=== PATIENT | male | born 1990 | race Caucasian/White ===

== ENCOUNTER 2024-09-21 14:16 | Emergency (ER) | payer SELFPAY ==
--- OUTSIDE RECORDS SUMMARY | 2024-09-21 14:19 | XMS_ITS | Continuity of Care Document ---
Author Organization [facility] Address [address] [place] [address] Phone Care Team Providers Care Community Relations Representative Name Role Phone Mikaela Walker Unavailable Unavailable Allergies, Adverse Reactions, Alerts Substance Reaction Status Criticality No Known Allergies Active No Inform ation Medications Medication Instructions Dosage Effective Dates (start - stop) Status Comments levothyroxine 100 mcg tablet take 1 tablet by oral route every day 100 MCG - Active Procedures Procedure Date FREE T4 (FT4) THYROID STIMULATION HORMONE(TSH) 2019 ROUTINE VENIPUNCTURE PREVENTATIVE-NEW: 18-39 GENERAL HEALTH PANEL FREE T4 (FT4) ROUTINE VENIPUNCTURE Advance Directives Directive Yes / No Effective Date File Name Life Support Not Answered N/A N/A Intubation Not Answered N/A N/A Antibiotics Not Answered N/A N/A IV Fluid Support Not Answered N/A N/A Tube Feed Not Answered N/A N/A Other Directive N/A N/A WARNING:The information contained in this section is historical and is provided for information only and does not constitute a legal document or any assurance that the information is still accurate. Please verify the information with the diehl of the legal document before using it for clinical purposes. Encounters Encounter Description Practice Location Reason(s) For Visit Diagnoses Date Provider Providers Copied on Encounter [facility], [address], [place], [place], [id number] , tel: [phone] [place] No Information 1 Kitty Al[address] [place], [place], [id number] , . tel: [phone] [facility], [address], [place], [place], [id number] , tel: [phone] [place] Graves diseaseHypothyroidism following radioiodine therapy 0 Archie [address] [place], [place], [id number] , . tel: [phone] Referring Provider: Lashay Hamilton, [address] [place], [address] . tel:[phone] [facility], [address], [place], [place], [address] , tel: [phone] [place] No Information 0 Kitty [address] [place], [place], [id number] , . tel: [phone] PREVENTATIVE -NEW: 18-39 [facility], [address], [place], [place], [id number] , tel: [phone] [facility] Patient (chief complaint) Routine medical examGraves diseaseS/P radioactive iodine thyroid ablationHypothyroidis m following radioiodine therapy 0 Kitty Al. [address] [place], [place], [id number] , [place]. tel:[phone] Referring Provider: Lashay Hamilton, [address] [place], [address] . tel:[phone] Family History Family Member Type Diagnosis Age At Onset Mother Problem rheumatoid arthritis Mother Problem Irritable bowel syndrome Mother Problem Lupus erythematosus Mother Problem Allergies Mother Problem asthma Mother Problem hypercholesterolemia Mother Problem attention deficit hyperactiv ity disorder Mother Problem osteoarthritis Mother Problem migraine Mother Problem stroke Payers Payer name Insurance type Covered libertarian ID Steffi fowler(s) [employer] [id number] Social History Type Description Quantity Date Captured Comments Alcohol Use Details Unknown Caffeine Use Details Unknown Tobacco Use Status No Information Smoking Status No Information Sex Male Sexual Orientation Straight or heterosexual Gender Identity Male Chief Complaint And Reason For Visit No Information Reason For Referral Reason For Referral No Information History Of Present Illness Encounter Date Complaint History Of Prese nt Illness New Patient Patient presents to establish care as a new patient. Patient's last visit to a primary care provider was approximately 4-5 years ago. Patient lives with a friend of his. Patient has a 6 year old son who lives with his mom in [place]. He gets to see him a couple times a month. He works at [employer] in [place].AcuteNo acute issuesChronicGraves diseasePatient takes levothyroxine. He has increased urination, night sweats, memory loss, constipation, increased appetite, insomnia, anxiety, general fatigue. He has been out of his medication for several months. Patient reports that these symptoms are all consistent with being out of his medication. He was seeing SANDRA Duffy. He did the radioactive iodine and completed treatment. He does not need to go back to the specialist. Specialists/Other Providers - noneAllergies - NKDAMood - anxious, amanda off of levothyroxineDiet - normal - fairly balancedExercise - goes to the gym 3-4 times per week Sexual history - sexually active with no concerns of STIsTobacco/Alcohol/Drugs - former quit one year ago/never/neverScreeningsnone neededImmunizationsInfluenza - UTDTdap - unknown (refuses today) Functional Status Date Functional Assessmen t No Information Instructions Date Instruction Additional Infor mikie We will check thyroi d labs today and contact you with results Related to Hypothyroidism following radioiodine therapy We will check labs t verónica and contact you tomorrow with results Related to S/P radioactive iodine thyroid ablation We will check labs t verónica and contact you tomorrow with results Related to Graves disease Return in one year f or annual physical Related to Routine medical exam Assessments Type Assessment Date No Information Patient Care Teams Name Effective Dates (start - stop) Status Members No Information
--- OUTSIDE RECORDS SUMMARY | 2024-09-21 14:19 | XMS_ITS | Clinical Summary ---
Author Organization [facility] Address [address] [place] [address] Care Team Providers Care Driller Portable Name Role Phone Henrietta Acevedo INSPECTOR RADAR AND ELECTRONICS-SANITARY AIDE Primary Care Provider Source Comments [facility],non-owned Affiliates and Associated Physician Practices is amultiple site organization consisting of ambulatory clinics and hospital sitesin [place], [place], [place] and [place]. This disclosure is being madepursuant to the Care Everywhere program and may not contain all information available regarding this patient. Last updated 18.[facility] Allergies Active Allergy Reactions Criticality Noted Date Comments Gramineae Pollens Other 09/29/2018 Grass/ pollen/ mold etc Medications * Be aware that medications may not be up to date on this document. Alwaysverify current medications with the patient. calcium carbonate (CALTRATE) 600 MG tablet Take 1 tablet by mouth DAILY. 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 Encounters Date Type Department Care Team Description 08/13/2024 2:57 PM CDT - 08/13/2024 8:14 PM CDT Emergency [facility] [address] [place] [address] Alea Nevarez MD Trauma (Primary Dx); Contusion of scalp, initial encounter Discharge Disposition: Home or Self Care 08/13/2024 Travel from Last 3 Months Immunizations Immunization Administration Dates Next Due TDAP (7yrs+) 08/13/2024 Family History Medical History Relation Name Comments Diabetes Maternal Grandfather Hypertension Maternal Grandfather Hypertension Maternal Grandmother Arthritis Mother Diabetes Paternal Grandfather Hypertension Paternal Grandfather Hypertension Paternal Grandmother Thyroid Disease Neg Hx Relation Name Status Comments Maternal Grandfather Maternal Grandmother Mother Paternal Grandfather Paternal Grandmother Social History Tobacco Use Types Packs/Day Years Used Date Smoking Tobacco: Former Cigarettes Q uit: 01/15/2017 Smokeless Tobacco: Never Alcohol Use Standard Drinks/Week Comments Yes 0 (1 standard drink = 0.6 oz pur e alcohol) Sex and Gender Information Value Date Recorded Sex Assigned at Not on file Legal Sex Male 5:17 PM [employer] 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[employer] Gender Identity Not on file Sexual Orientation Not on file Last Filed Vital Signs Vital Sign Reading Time Taken Comments Blood Pressure 138/94 08/13/2024 6:15 PM CDT Pulse 66 08/13/2024 6:15 PM CDT Temperature 36.3 C (97.4 F) 08/13/2024 2:56 PM CDT Respiratory Rate 16 08/13/2024 6:15 PM CDT Oxygen Saturation 98% 08/13/2024 6:15 PM CDT Inhaled Oxygen Concentration - - Weight 65.8 kg (145 lb) 07/11/2019 2:43 PM CDT Height 167.6 cm (5' 6 ) 07/11/2019 2:43 PM CDT Body Mass Index 23.4 07/11/2019 2:43 PM CDT Plan of Treatment Health Maintenance Due Date Last Done Comments HIV SCREENING 11/05/2003 HEPATITIS C SCREENING 10/31/2006 HEPATITIS B VACCINE (1 of 3 - 19+ 3-dose series) 11/05/2007 COVID-19 VACCINE (2023-2 5 season) 2024 DEPRESSION SCREENING 05/03/2024 INFLUENZA VACCINE (Season Ended) 2025 DTAP/TDAP/TD VACCINES (2 - T d or Tdap) 08/13/2034 08/13/2024 ZOSTER VACCINE (1 of 2) 2038 HIB VACCINE Aged Out No longer eligi ble based on patient's age to complete this topic HPV VACCINE Aged Out No longer eligi ble based on patient's age to complete this topic MENINGOCOCCAL (Group B) VACC INE SHARED DECISION-MAKING Aged Out No longer eligibl e based on patient's age to complete this topic MENINGOCOCCAL GROUPS A/C/Y/W VACCINE Aged Out No longer eligible b ased on patient's age to complete this topic PNEUMOCOCCAL VACCINE Aged Out No long er eligible based on patient's age to complete this topic Procedures Procedure Name Priority Date/Time Associated Diagnosis Comments XR SHOULDER RIGHT 2VW OR MORE STAT 08/13/2024 5:[address] CERVICAL SPINE WO CONTRAST STAT 08/13/2024 3:[address] FACIAL BONES WO CONTRAST STAT 08/13/2024 3:[address] HEAD WO CONTRAST STAT 08/13/2024 3 :25 PM CDT Trauma TYPE + SCREEN PANEL STAT 08/13/2024 3 :11 PM CDT PTT H STAT 08/13/2024 3:11 PM CDT PT-INR [facility] STAT 08/13/2024 3:11 PM CDT CBC W AUTO DIFFERENTIAL STAT 08/13/2024 3:11 PM CDT BASIC METABOLIC PANEL (CALCIUM TOTAL) STAT 08/13/2024 3:11 PM CDT ALCOHOL ETHYL BLOOD STAT 08/13/2024 3 :11 PM CDT XR CHEST 1VW PORTABLE STAT 08/13/2024 3:10 PM CDT Trauma XR PELVIS 1 OR 2VW STAT 08/13/2024 3: 10 PM CDT Trauma from Last 3 Months Results * XR Shoulder Right 2Vw or More (08/13/2024 5:14 PM CDT) Anatomical Region Laterality Modality Upper Extremity Digital Radiogra phy 08/13/2024 5:41 PM CDT Impressions 08/13/2024 8:40 PM CDT IMPRESSION: No acute fracture or dislocation identified. Report dictated by Soheila Daly Dr, MD (doctor of radiology). Carroll Corea MD have personally reviewed and interpreted this examination/study. > Interpreting Provider: Carroll Mcguire MD on 08/13/2024 8:40 PM Narrative 08/13/2024 8:40 PM CDT PROCEDURE: XR SHOULDER RIGHT 2VW OR MORE, DATE/TIME OF EXAM: 08/13/2024 5:14 PM, LOCATION [facility] INDICATION: T14.90XA: Trauma ADDITIONAL CLINICAL INFORMATION: Ordering Provider Reason For Exam: fx Technologist Note: Additional: COMPARISON: None. FINDINGS: The osseous structures are intact without acute fracture. The glenohumeral and acromioclavicular joints are in anatomic alignment. Bone density and texture are normal. Procedure Note Carroll Mcguire MD - 08/13/2024 PROCEDURE: XR SHOULDER RIGHT 2VW OR MORE, DATE/TIME OF EXAM: 08/13/2024 5:14 PM, LOCATION [facility] INDICATION: T14.90XA: Trauma ADDITIONAL CLINICAL INFORMATION: Ordering Provider Reason For Exam: fx Technologist Note: Additional: COMPARISON: None. FINDINGS: The osseous structures are intact without acute fracture. Theglenohumeral and acromioclavicular joints are in anatomic alignment. Bone density and texture are normal. IMPRESSION: No acute fracture or dislocation identified. Report dictated by Soheila Daly Dr, MD (doctor of radiology). Carroll Corea MD have personally reviewed and interpreted this examination/study. > Interpreting Provider: Carroll Mcguire MD on 08/13/2024 8:40 PM Alea Nevarez MD DIAGNOSTIC IMAGING ORDERABLES Final Result * CT CERVICAL SPINE WO CONTRAST - C-Spine Trauma, Spine fracture (08/13/2024 3:25 PM CDT) Anatomical Region Laterality Modality Spine Computed Tomogra phy 08/13/2024 3:34 PM CDT Impressions 08/13/2024 5:05 PM CDT IMPRESSION: 1.No acute intracranial hemorrhage 2.Loss of burns-white differentiation in the left occipital lobe most likely artifactual less likely evolving infarct. MRI could be considered for further evaluation if clinically warranted. 3.No acute facial bone fractures identified. 4.No evidence of acute fracture in the cervical spine. Mild to moderate central canal stenosis and slight mass effect on the adjacent spinal cord secondary to posterior disc disc osteophyte complex/protrusion at the level of C3-C4. Preliminary findings were discussed in detail with the patient's care provider, Dr Briceno by Dr. Soheila Daly via telephone at 08/13/2024 3:38 PM with readback comprehension and verification. The report is dictated by Soheila Daly Dr, MD (doctor of radiology) I, Pamela Lloyd MD have personally reviewed and interpreted this examination/study. > Interpreting Provider: Pamela Lloyd MD on 08/13/2024 5:05 PM Narrative 08/13/2024 5:05 PM CDT PROCEDURE: CT HEAD WO CONTRAST, CT FACIAL BONES WO CONTRAST, CT CERVICAL SPINE WO CONTRAST, DATE/TIME OF EXAM: 08/13/2024 3:26 PM, LOCATION [facility] INDICATION: Trauma EXAMINATION: 1. Computed tomography (CT) of the head without contrast 2. CT of the maxillofacial bones, orbits, and paranasal sinuses without contrast 3. CT of the cervical spine without contrast HISTORY: Trauma TECHNIQUE: CT of the head, cervical spine, and maxillofacial bones, orbits, and paranasal sinuses was performed without contrast according to standard protocol. CT dose reduction technique was used, including Automated Exposure Control. COMPARISON: FINDINGS: Head: No acute intracranial hemorrhage or extra-axial fluid collections are identified. The ventricles are of normal size, shape, and morphology. The basilar cisterns are patent. No mass effect or midline shift is seen. There is loss of burns-white differentiation within the left occipital lobe. The burns-white matter differentiation otherwise appears normal. No acute calvarial fracture is identified. Maxillofacial: The orbits appear normal. There is mild paranasal sinus disease. The hard palate, mandible, and temporomandibular joints appear normal. No acute facial bone fractures are identified. The mastoid air cells are clear. No soft tissue abnormality is identified. Cervical spine: There is straightening of the lordotic curvature of the cervical spine. Vertebral bodies are normal in height without evidence of acute fracture. Other than middle atlantoaxial joint osteoarthritis, the craniocervical junction appears normal. There is mild degenerative disc disease. Posterior central, left central paracentral disc protrusion causing mild mass effect on the adjacent spinal cord and mild to moderate central canal stenosis at the level of C3-C4. Small posterior disc bulges also noted at the level of C5-C6 and C6-C7.. The facets appear normal. No significant uncovertebral hypertrophy.. No neural foraminal stenosis is seen. There is paraseptal emphysema in the lung apices. Procedure Note Pamela Lloyd MD - 08/13/2024 PROCEDURE: CT HEAD WO CONTRAST, CT FACIAL BONES WO CONTRAST, CTCERVICAL SPINE WO CONTRAST, DATE/TIME OF EXAM: 08/13/2024 3:26 PM, LOCATION [facility] INDICATION: Trauma EXAMINATION: 1. Computed tomography (CT) of the head without contrast 2. CT of the maxillofacial bones, orbits, and paranasal sinuses without contrast 3. CT of the cervical spine without contrast HISTORY: Trauma TECHNIQUE: CT of the head, cervical spine, and maxillofacial bones,orbits, and paranasal sinuses was performed without contrast according tostandard protocol. CT dose reduction technique was used, including Automated Exposure Control. COMPARISON: FINDINGS: Head: No acute intracranial hemorrhage or extra-axial fluid collections are identified. The ventricles are of normal size, shape, and morphology.The basilar cisterns are patent. No mass effect or midline shift is seen.There is loss of burns-white differentiation within the left occipital lobe.The burns-white matter differentiation otherwise appears normal. No acute calvarial fracture is identified. Maxillofacial: The orbits appear normal. There is mild paranasal sinus disease. Thehard palate, mandible, and temporomandibular joints appear normal. No acute facial bone fractures are identified. The mastoid air cells are clear.No soft tissue abnormality is identified. Cervical spine: There is straightening of the lordotic curvature of the cervical spine. Vertebral bodies are normal in height without evidence of acutefracture. Other than middle atlantoaxial joint osteoarthritis, the craniocervical junction appears normal. There is mild degenerative disc disease.Posterior central, left central paracentral disc protrusion causing mild masseffect on the adjacent spinal cord and mild to moderate central canal stenosisat the level of C3-C4. Small posterior disc bulges also noted at the levelof C5-C6 and C6-C7.. The facets appear normal. No significant uncovertebral hypertrophy.. No neural foraminal stenosis is seen. There is paraseptal emphysema in the lung apices. IMPRESSION: 1.No acute intracranial hemorrhage 2.Loss of burns-white differentiation in the left occipital lobe mostlikely artifactual less likely evolving infarct. MRI could be considered for further evaluation if clinically warranted. 3.No acute facial bone fractures identified. 4.No evidence of acute fracture in the cervical spine. Mild to moderate central canal stenosis and slight mass effect on the adjacent spinalcord secondary to posterior disc disc osteophyte complex/protrusion at thelevel of C3-C4. Preliminary findings were discussed in detail with the patient's care provider, Dr Briceno by Dr. Soheila Daly via telephone at 53:38 PM with readback comprehension and verification. The report is dictated by Soheila Daly Dr, MD (doctor of radiology) I, Pamela Lloyd MD have personally reviewed and interpreted this examination/study. > Interpreting Provider: Pamela Lloyd MD on 08/13/2024 5:05 PM us Henry Mejia DO CT ORDERABLES Final Result * CT FACIAL BONES WO CONTRAST - Facial trauma, fx suspected, blunt (08/13/2024 3:25 PM CDT) Anatomical Region Laterality Modality Head Computed Tomogra phy 08/13/2024 3:34 PM CDT Impressions 08/13/2024 5:05 PM CDT IMPRESSION: 1.No acute intracranial hemorrhage 2.Loss of burns-white differentiation in the left occipital lobe most likely artifactual less likely evolving infarct. MRI could be considered for further evaluation if clinically warranted. 3.No acute facial bone fractures identified. 4.No evidence of acute fracture in the cervical spine. Mild to moderate central canal stenosis and slight mass effect on the adjacent spinal cord secondary to posterior disc disc osteophyte complex/protrusion at the level of C3-C4. Preliminary findings were discussed in detail with the patient's care provider, Dr Briceno by Dr. Soheila Daly via telephone at 08/13/2024 3:38 PM with readback comprehension and verification. The report is dictated by Soheila Daly Dr, MD (doctor of radiology) I, Pamela Lloyd MD have personally reviewed and interpreted this examination/study. > Interpreting Provider: Pamela Lloyd MD on 08/13/2024 5:05 PM Narrative 08/13/2024 5:05 PM CDT PROCEDURE: CT HEAD WO CONTRAST, CT FACIAL BONES WO CONTRAST, CT CERVICAL SPINE WO CONTRAST, DATE/TIME OF EXAM: 08/13/2024 3:26 PM, LOCATION [facility] INDICATION: Trauma EXAMINATION: 1. Computed tomography (CT) of the head without contrast 2. CT of the maxillofacial bones, orbits, and paranasal sinuses without contrast 3. CT of the cervical spine without contrast HISTORY: Trauma TECHNIQUE: CT of the head, cervical spine, and maxillofacial bones, orbits, and paranasal sinuses was performed without contrast according to standard protocol. CT dose reduction technique was used, including Automated Exposure Control. COMPARISON: FINDINGS: Head: No acute intracranial hemorrhage or extra-axial fluid collections are identified. The ventricles are of normal size, shape, and morphology. The basilar cisterns are patent. No mass effect or midline shift is seen. There is loss of burns-white differentiation within the left occipital lobe. The burns-white matter differentiation otherwise appears normal. No acute calvarial fracture is identified. Maxillofacial: The orbits appear normal. There is mild paranasal sinus disease. The hard palate, mandible, and temporomandibular joints appear normal. No acute facial bone fractures are identified. The mastoid air cells are clear. No soft tissue abnormality is identified. Cervical spine: There is straightening of the lordotic curvature of the cervical spine. Vertebral bodies are normal in height without evidence of acute fracture. Other than middle atlantoaxial joint osteoarthritis, the craniocervical junction appears normal. There is mild degenerative disc disease. Posterior central, left central paracentral disc protrusion causing mild mass effect on the adjacent spinal cord and mild to moderate central canal stenosis at the level of C3-C4. Small posterior disc bulges also noted at the level of C5-C6 and C6-C7.. The facets appear normal. No significant uncovertebral hypertrophy.. No neural foraminal stenosis is seen. There is paraseptal emphysema in the lung apices. Procedure Note Pamela Lloyd MD - 08/13/2024 PROCEDURE: CT HEAD WO CONTRAST, CT FACIAL BONES WO CONTRAST, CTCERVICAL SPINE WO CONTRAST, DATE/TIME OF EXAM: 08/13/2024 3:26 PM, LOCATION [facility] INDICATION: Trauma EXAMINATION: 1. Computed tomography (CT) of the head without contrast 2. CT of the maxillofacial bones, orbits, and paranasal sinuses without contrast 3. CT of the cervical spine without contrast HISTORY: Trauma TECHNIQUE: CT of the head, cervical spine, and maxillofacial bones,orbits, and paranasal sinuses was performed without contrast according tostandard protocol. CT dose reduction technique was used, including Automated Exposure Control. COMPARISON: FINDINGS: Head: No acute intracranial hemorrhage or extra-axial fluid collections are identified. The ventricles are of normal size, shape, and morphology.The basilar cisterns are patent. No mass effect or midline shift is seen.There is loss of burns-white differentiation within the left occipital lobe.The burns-white matter differentiation otherwise appears normal. No acute calvarial fracture is identified. Maxillofacial: The orbits appear normal. There is mild paranasal sinus disease. Thehard palate, mandible, and temporomandibular joints appear normal. No acute facial bone fractures are identified. The mastoid air cells are clear.No soft tissue abnormality is identified. Cervical spine: There is straightening of the lordotic curvature of the cervical spine. Vertebral bodies are normal in height without evidence of acutefracture. Other than middle atlantoaxial joint osteoarthritis, the craniocervical junction appears normal. There is mild degenerative disc disease.Posterior central, left central paracentral disc protrusion causing mild masseffect on the adjacent spinal cord and mild to moderate central canal stenosisat the level of C3-C4. Small posterior disc bulges also noted at the levelof C5-C6 and C6-C7.. The facets appear normal. No significant uncovertebral hypertrophy.. No neural foraminal stenosis is seen. There is paraseptal emphysema in the lung apices. IMPRESSION: 1.No acute intracranial hemorrhage 2.Loss of burns-white differentiation in the left occipital lobe mostlikely artifactual less likely evolving infarct. MRI could be considered for further evaluation if clinically warranted. 3.No acute facial bone fractures identified. 4.No evidence of acute fracture in the cervical spine. Mild to moderate central canal stenosis and slight mass effect on the adjacent spinalcord secondary to posterior disc disc osteophyte complex/protrusion at thelevel of C3-C4. Preliminary findings were discussed in detail with the patient's care provider, Dr Briceno by Dr. Soheila Daly via telephone at 53:38 PM with readback comprehension and verification. The report is dictated by Soheila Daly Dr, MD (doctor of radiology) I, Pamela Lloyd MD have personally reviewed and interpreted this examination/study. > Interpreting Provider: Pamela Lloyd MD on 08/13/2024 5:05 PM us Henry Efrain Mejia DO CT ORDERABLES Final Result * CT HEAD WO CONTRAST - Head Trauma, CSF leak, mental status changes (08/13/2024 3:25 PM CDT) Anatomical Region Laterality Modality Head Computed Tomogra phy 08/13/2024 3:34 PM CDT Impressions 08/13/2024 5:05 PM CDT IMPRESSION: 1.No acute intracranial hemorrhage 2.Loss of burns-white differentiation in the left occipital lobe most likely artifactual less likely evolving infarct. MRI could be considered for further evaluation if clinically warranted. 3.No acute facial bone fractures identified. 4.No evidence of acute fracture in the cervical spine. Mild to moderate central canal stenosis and slight mass effect on the adjacent spinal cord secondary to posterior disc disc osteophyte complex/protrusion at the level of C3-C4. Preliminary findings were discussed in detail with the patient's care provider, Dr Briceno by Dr. Soheila Daly via telephone at 08/13/2024 3:38 PM with readback comprehension and verification. The report is dictated by Soheila Daly Dr, MD (doctor of radiology) I, Pamela Lloyd MD have personally reviewed and interpreted this examination/study. > Interpreting Provider: Pamela Lloyd MD on 08/13/2024 5:05 PM Narrative 08/13/2024 5:05 PM CDT PROCEDURE: CT HEAD WO CONTRAST, CT FACIAL BONES WO CONTRAST, CT CERVICAL SPINE WO CONTRAST, DATE/TIME OF EXAM: 08/13/2024 3:26 PM, LOCATION [facility] INDICATION: Trauma EXAMINATION: 1. Computed tomography (CT) of the head without contrast 2. CT of the maxillofacial bones, orbits, and paranasal sinuses without contrast 3. CT of the cervical spine without contrast HISTORY: Trauma TECHNIQUE: CT of the head, cervical spine, and maxillofacial bones, orbits, and paranasal sinuses was performed without contrast according to standard protocol. CT dose reduction technique was used, including Automated Exposure Control. COMPARISON: FINDINGS: Head: No acute intracranial hemorrhage or extra-axial fluid collections are identified. The ventricles are of normal size, shape, and morphology. The basilar cisterns are patent. No mass effect or midline shift is seen. There is loss of burns-white differentiation within the left occipital lobe. The burns-white matter differentiation otherwise appears normal. No acute calvarial fracture is identified. Maxillofacial: The orbits appear normal. There is mild paranasal sinus disease. The hard palate, mandible, and temporomandibular joints appear normal. No acute facial bone fractures are identified. The mastoid air cells are clear. No soft tissue abnormality is identified. Cervical spine: There is straightening of the lordotic curvature of the cervical spine. Vertebral bodies are normal in height without evidence of acute fracture. Other than middle atlantoaxial joint osteoarthritis, the craniocervical junction appears normal. There is mild degenerative disc disease. Posterior central, left central paracentral disc protrusion causing mild mass effect on the adjacent spinal cord and mild to moderate central canal stenosis at the level of C3-C4. Small posterior disc bulges also noted at the level of C5-C6 and C6-C7.. The facets appear normal. No significant uncovertebral hypertrophy.. No neural foraminal stenosis is seen. There is paraseptal emphysema in the lung apices. Procedure Note Pamela Lloyd MD - 08/13/2024 PROCEDURE: CT HEAD WO CONTRAST, CT FACIAL BONES WO CONTRAST, CTCERVICAL SPINE WO CONTRAST, DATE/TIME OF EXAM: 08/13/2024 3:26 PM, LOCATION [facility] INDICATION: Trauma EXAMINATION: 1. Computed tomography (CT) of the head without contrast 2. CT of the maxillofacial bones, orbits, and paranasal sinuses without contrast 3. CT of the cervical spine without contrast HISTORY: Trauma TECHNIQUE: CT of the head, cervical spine, and maxillofacial bones,orbits, and paranasal sinuses was performed without contrast according tostandard protocol. CT dose reduction technique was used, including Automated Exposure Control. COMPARISON: FINDINGS: Head: No acute intracranial hemorrhage or extra-axial fluid collections are identified. The ventricles are of normal size, shape, and morphology.The basilar cisterns are patent. No mass effect or midline shift is seen.There is loss of burns-white differentiation within the left occipital lobe.The burns-white matter differentiation otherwise appears normal. No acute calvarial fracture is identified. Maxillofacial: The orbits appear normal. There is mild paranasal sinus disease. Thehard palate, mandible, and temporomandibular joints appear normal. No acute facial bone fractures are identified. The mastoid air cells are clear.No soft tissue abnormality is identified. Cervical spine: There is straightening of the lordotic curvature of the cervical spine. Vertebral bodies are normal in height without evidence of acutefracture. Other than middle atlantoaxial joint osteoarthritis, the craniocervical junction appears normal. There is mild degenerative disc disease.Posterior central, left central paracentral disc protrusion causing mild masseffect on the adjacent spinal cord and mild to moderate central canal stenosisat the level of C3-C4. Small posterior disc bulges also noted at the levelof C5-C6 and C6-C7.. The facets appear normal. No significant uncovertebral hypertrophy.. No neural foraminal stenosis is seen. There is paraseptal emphysema in the lung apices. IMPRESSION: 1.No acute intracranial hemorrhage 2.Loss of burns-white differentiation in the left occipital lobe mostlikely artifactual less likely evolving infarct. MRI could be considered for further evaluation if clinically warranted. 3.No acute facial bone fractures identified. 4.No evidence of acute fracture in the cervical spine. Mild to moderate central canal stenosis and slight mass effect on the adjacent spinalcord secondary to posterior disc disc osteophyte complex/protrusion at thelevel of C3-C4. Preliminary findings were discussed in detail with the patient's care provider, Dr Briceno by Dr. Soheila Daly via telephone at 53:38 PM with readback comprehension and verification. The report is dictated by Soheila Daly Dr, MD (doctor of radiology) I, Pamela Lloyd MD have personally reviewed and interpreted this examination/study. > Interpreting Provider: Pamela Lloyd MD on 08/13/2024 5:05 PM us Henry Mejia DO CT ORDERABLES Final Result * PTT [facility] (08/13/2024 3:11 PM CDT) APTT 29.9 23.0 - 38.4 Seconds 08/13/2024 3:53 PM CDT [facility] Comment:Suggested therapeuti c range for full dose I.V. unfractionated heparin therapy for venous thromboembolism is 71 to 109 seconds. Blood BLOOD SPECIMEN / Unknown Venipuncture / Unknown 08/13/2024 3:11 PM CDT 08/13/2024 3:15 PM CDT Henry Mejia DO LAB - COAGULATION ORDERABLES Final Result [facility] [address] [place] [address], [facility] [phone] * PT-INR [facility] (08/13/2024 3:11 PM CDT) PT 13.1 12.1 - 14.8 Seconds 08/13/2024 3:53 PM CDT [facility] INR 1.0 See Comment 08/13/2024 3:53 PM CDT [facility] Comment:The suggested therap eutic range for standard coumadin (warfarin) therapy is an INR of 2.0-3.0. For high-risk patients (Mechanical Mitral Valve Prosthesis, etc.), the suggested prophylactic therapeutic range is an INR of 2.5-3.5. Blood BLOOD SPECIMEN / Unknown Venipuncture / Unknown 08/13/2024 3:11 PM CDT 08/13/2024 3:15 PM CDT Henry Mejia DO LAB - COAGULATION ORDERABLES Final Result Performing Organization Address City/[facility]/ZIP Co de Phone Number [facility] [address] [place] [address], [place] [phone] * TYPE + SCREEN PANEL (08/13/2024 3:11 PM CDT) Pathologist [facility] Antibody Screen NEG 4:07 PM CDT [facility] ABO Rh O POS 08/13/2024 4:07 PM CDT [facility] Blood Bank BLOOD SPECIMEN / Unknown Venipuncture / Unknown 08/13/2024 3:11 PM CDT 08/13/2024 3:15 PM CDT Henry Mejia DO LAB - BLOOD BANK ORDERABLES Final Result Performing Organization Address City/[facility]/ZIP Co de Phone Number [facility] [address] [place] [address], [place] [phone] * (ABNORMAL) CBC W AUTO DIFFERENTIAL (08/13/2024 3:11 PM CDT) WBC 10.3 4.0 - 10.7 x10E9/L 08/13/2024 3:20 PM CDT [facility] RBC Count 3.90(L) 4.30 - 5.80 x10E12/L 08/13/2024 3:20 PM CDT [facility] Hemoglobin 12.6(L) 13.3 - 17.5 g/dL 08/13/2024 3:20 PM CDT [facility] Hematocrit 36.1(L) 38.7 - 51.1 % 08/13/2024 3:20 PM CDT [facility] MCV 92.6 80.0 - 98.0 fL 08/13/2024 3:20 PM CDT [facility] MCH 32.3 26.7 - 33.6 pg 08/13/2024 3:20 PM [facility] MCHC 34.9 31.7 - 36.3 g/dL 08/13/2024 3:20 PM [facility] RDW-CV 11.8 11.3 - 14.8 % 08/13/2024 3:20 PM [facility] Platelet Count 263 150 - 420 x10E9/L 08/13/2024 3:20 PM [facility] MPV 9.7 7.8 - 11.4 fL 08/13/2024 3:20 PM [facility] Neutrophil % 72.0 41.0 - 74.0 % 08/13/2024 3:20 PM [facility] Lymphocyte % 18.2 17.0 - 47.0 % 08/13/2024 3:20 PM [facility] Monocyte % 6.6 3.0 - 11.0 % 08/13/2024 3:20 PM [facility] Eosinophil % 2.3 0.0 - 7.0 % 08/13/2024 3:20 PM [facility] Basophil % 0.5 0.0 - 1.6 % 08/13/2024 3:20 PM [facility] Immature Granulocytes % 0.4 0.0 - 1.0 % 08/13/2024 3:20 PM [facility] Neutrophil Absolute 7.44 1.60 - 7.50 x10E9/L 08/13/2024 3:20 PM [facility] Lymphocyte Absolute 1.88 1.00 - 4.40 x10E9/L 08/13/2024 3:20 PM [facility] Monocyte Absolute 0.68 0.15 - 1.00 x10E9/L 08/13/2024 3:20 PM [facility] Eosinophil Absolute 0.24 0.00 - 0.60 x10E9/L 08/13/2024 3:20 PM [facility] Basophil Absolute 0.05 0.00 - 0.13 x10E9/L 08/13/2024 3:20 PM [facility] Blood BLOOD SPECIMEN / Unknown Venipuncture / Unknown 08/13/2024 3:11 PM CDT 08/13/2024 3:15 PM CDT us Henry Mejia DO LAB - HEMATOLOGY ORDERABLES Final Result [facility] [address] [place] [address], [facility] [phone] * BASIC METABOLIC PANEL (CALCIUM TOTAL) (08/13/2024 3:11 PM CDT) BUN 10 7 - 26 mg/dL 08/13/2024 3:40 PM [facility] Creatinine 0.96 0.71 - 1.16 mg/dL 08/13/2024 3:40 PM [facility] Sodium 140 136 - 145 mmol/L 08/13/2024 3:40 PM [facility] Potassium 3.6 3.5 - 4.5 mmol/L 08/13/2024 3:40 PM [facility] Chloride 104 98 - 107 mmol/L 08/13/2024 3:40 PM [facility] CO2 24 22 - 29 mmol/L 08/13/2024 3:40 PM [facility] Glucose 90 70 - 99 mg/dL 08/13/2024 3:40 PM [facility] Calcium 8.7 8.4 - 10.2 mg/dL 08/13/2024 3:40 PM [facility] Anion Gap 12 6 - 16 08/13/2024 3:40 PM [facility] BUN/Creatinine Ratio 10 7 - 23 08/13/2024 3:40 PM [facility] Osmolality Calculated 289 275 - 295 mOsm/kg 08/13/2024 3:40 PM [facility] eGFR by CKD-EPI >90 >=90 mL/min/1.7 3 m2 08/13/2024 3:40 PM [facility] Blood BLOOD SPECIMEN / Unknown Venipuncture / Unknown 08/13/2024 3:11 PM CDT 08/13/2024 3:15 PM CDT us Henry Mejia DO LAB - CHEMISTRY ORDERABLES F inal Result Performing Organization Address [facility] Co de Phone Number [facility] [address] [place] [address], [facility] [phone] * ALCOHOL ETHYL BLOOD (08/13/2024 3:11 PM CDT) Ethanol (mg/dL) <10 <10 mg/dL 3:40 PM CDT [facility] Ethanol Calculated (g/dL) <0.010 <=0.010 g/dL 08/13/2024 3:40 PM CDT [facility] Blood BLOOD SPECIMEN / Unknown Venipuncture / Unknown 08/13/2024 3:11 PM CDT 08/13/2024 3:15 PM CDT Narrative [facility] - 08/13/2024 3:40 PM CDT Ethanol Interp <10: None Detected. Depression of ASSISTANT MECHANIC: >100 mg/dl Potentially Critical: >250 mg/dl Potentially Fatal >400 mg/dl Ethanol in the patient's blood will contribute to the osmolar gap. Ethanol's contribution to the osmolar gap can be estimated by dividing the concentration of ethanol in mg/dL by 4.6. This test is for clinical use only and does not equal a NERI for legal purposes. Henry [facility] - CHEMISTRY ORDERABLES F inal Result Performing Organization Address [facility] Co de Phone Number [facility] [address] [place] [address], [facility] [phone] * XR CHEST 1VW PORTABLE (08/13/2024 3:10 PM CDT) Anatomical Region Laterality Modality Chest Digital Radiogra phy 08/13/2024 3:13 PM CDT Narrative 08/13/2024 8:34 PM CDT PROCEDURE: XR CHEST 1VW PORTABLE, DATE/TIME OF EXAM: 08/13/2024 3:10 PM, LOCATION [facility] INDICATION: Trauma ADDITIONAL CLINICAL INFORMATION: Ordering Provider Reason For Exam: Technologist Note: Additional: COMPARISON: None. FINDINGS/IMPRESSION: Low lung volumes with bronchovascular crowding. No focal consolidation, pneumothorax, or pleural effusion. The cardiomediastinal silhouette is normal. No displaced fractures identified. Report dictated by Soheila Daly Dr, MD (doctor of radiology). Carroll Corea MD have personally reviewed and interpreted this examination/study. > Interpreting Provider: Carroll Mcguire MD on 08/13/2024 8:34 PM Procedure Note Carroll Mcguire MD - 08/13/2024 PROCEDURE: XR CHEST 1VW PORTABLE, DATE/TIME OF EXAM: 08/13/2024 3:10PM, LOCATION [facility] INDICATION: Trauma ADDITIONAL CLINICAL INFORMATION: Ordering Provider Reason For Exam: Technologist Note: Additional: COMPARISON: None. FINDINGS/IMPRESSION: Low lung volumes with bronchovascular crowding. No focal consolidation, pneumothorax, or pleural effusion. The cardiomediastinal silhouette is normal. No displaced fractures identified. Report dictated by Soheila Daly Dr, MD (doctor of radiology). Carroll Corea MD have personally reviewed and interpreted this examination/study. > Interpreting Provider: Carroll Mcguire MD on 08/13/2024 8:34 PM Henry Mejia DO DIAGNOSTIC IMAGING ORDERABLE S Final Result * XR PELVIS 1 OR 2VW (08/13/2024 3:10 PM CDT) Anatomical Region Laterality Modality Pelvis Digital Radiogra phy 08/13/2024 3:17 PM CDT Impressions 08/13/2024 8:34 PM CDT IMPRESSION: No acute fracture identified. Report dictated by Soheila Daly Dr, MD (doctor of radiology). Carroll Corea MD have personally reviewed and interpreted this examination/study. > Interpreting Provider: Carroll Mcguire MD on 08/13/2024 8:34 PM Narrative 08/13/2024 8:34 PM CDT PROCEDURE: XR PELVIS 1 OR 2VW, DATE/TIME OF EXAM: 08/13/2024 3:10 PM, LOCATION [facility] INDICATION: Trauma Fracture suspected ADDITIONAL CLINICAL INFORMATION: Ordering Provider Reason For Exam: Technologist Note: Additional: COMPARISON: None. FINDINGS: No acute fracture is identified. The femoral heads appear well-seated within their respective acetabula. The pubic symphysis is intact. Bone density and texture are normal. The sacroiliac joints are normal. Procedure Note Carroll Mcguire MD - 08/13/2024 PROCEDURE: XR PELVIS 1 OR 2VW, DATE/TIME OF EXAM: 08/13/2024 3:10 PM, LOCATION [facility] INDICATION: Trauma Fracture suspected ADDITIONAL CLINICAL INFORMATION: Ordering Provider Reason For Exam: Technologist Note: Additional: COMPARISON: None. FINDINGS: No acute fracture is identified. The femoral heads appear well-seated within their respective acetabula. The pubic symphysis is intact. Bone density and texture are normal. The sacroiliac joints are normal. IMPRESSION: No acute fracture identified. Report dictated by Soheila Daly Dr, MD (doctor of radiology). ICarroll MD have personally reviewed and interpreted this examination/study. > Interpreting Provider: Carroll Mcguire MD on 08/13/2024 8:34 PM Henry Mejia DO DIAGNOSTIC IMAGING ORDERABLE S Final Result from Last 3 Months Insurance [employer] Care Teams Driller Portable Relationship Specialty Start Date End Date Henrietta Acevedo, INSPECTOR [employer]LECT[employer]-SANITARY AIDE [address] [place] [address] PCP - General 12/14/17
[2024-09-21 14:34] VITALS: BP 123/68; PULSE 69; RESP 16; TEMP 36.6; O2SAT 100
--- NOTE | 2024-09-21 16:04 | ED_ITS ---
HPI - GI Bleed General Chief complaint: GI Bleed Stated complaint: Bright/dark red stool x 4 today, crampy Time Seen by Provider: 09/21/24 16:04 Focused HPI: Patient GENERAL: Well-appearing, well-nourished, and in no acute distress. HEAD: Normocephalic, atraumatic. CHEST: Clear to auscultation. ?No respiratory distress. HEART: Regular rate and rhythm.? NEURO: ?Alert and oriented x3. Patient screened in triage and initial orders placed.? ?Additional care and disposition to be based upon?diagnostic testing and treatment. Related Data Allergies Allergy/AdvReac Type Severity Reaction Status Date / Time No Known Allergies Allergy Mild Verified 09/21/24 14:17 Course Vital Signs Vital signs: Vital Signs Temperature 97.9 F 09/21/24 14:34 Pulse Rate 69 09/21/24 14:34 Respiratory Rate 16 09/21/24 14:34 Blood Pressure 123/68 09/21/24 14:34 Pulse Oximetry 100 09/21/24 14:34 Temperature 97.9 F 09/21/24 14:34 Pulse Rate 69 09/21/24 14:34 Respiratory Rate 16 09/21/24 14:34 Blood Pressure 123/68 09/21/24 14:34 Pulse Oximetry 100 09/21/24 14:34 Discharge Plan Discharge Patient Language: Slovenian Follow-up/Referrals: UNKNOWN,DOCTOR [Primary Care Provider] -
--- NOTE | 2024-09-21 16:47 | PC.NURSE ---
no answers to calls x 2 [phone], unable to locate in waiting room or outside
--- OUTSIDE RECORDS SUMMARY | 2024-09-21 16:53 | XMS_ITS | Continuity of Care Document ---
Author Organization [facility] Address [address] [place] [address] Phone Care Team Providers Care Wrist Closer Name Role Phone Mikaela Walker Unavailable Unavailable [...] Diagnoses Date Provider Providers Copied on Encounter [facility], [address], [place], [place], [id number] , tel: [phone] Wayne No Information 1 [address] [place], [place], [id number] , . tel: [phone] [facility], [address], [place], [place], [address] , tel: [phone] [place] Graves diseaseHypothyroidism following radioiodine therapy 0 Archie [address] [place], [place], [id number] , . tel: [phone] Referring Provider: Lashay Hamilton, [address] [place], [address] . tel:[phone] [facility], [address], [place], [place], [address] , tel: [phone] [place] No Information 0 Kitty [address] [place], [place], [id number] , . tel: [phone] PREVENTATIVE -NEW: 18-39 [facility], [address], [place], [place], [id number] , tel: [phone] [facility] Patient (chief complaint) Routine medical examGraves diseaseS/P radioactive iodine thyroid ablationHypothyroidis m following radioiodine therapy 0 Kitty [address] [place], [place], [address] , [place]. [phone] Referring Provider: Lashay Hamilton, [address] [place], [address] . tel:[phone] Family History Family Member Type Diagnosis Age At Onset Mother Problem rheumatoid arthritis Mother Problem Irritable bowel syndrome Mother Problem Lupus erythematosus Mother Problem Allergies Mother Problem asthma Mother Problem hypercholesterolemia Mother Problem attention deficit hyperactiv ity disorder Mother Problem osteoarthritis Mother Problem migraine Mother Problem stroke Payers Payer name Insurance type Covered green party ID Steffi fowler(s) [facility] [id number] Social History Type Description Quantity Date Captured [...] son who lives with his mom in [place]. He gets to see him a couple times a month. He works at [employer] in [place].AcuteNo acute issuesChronicGraves diseasePatient takes levothyroxine. He has [...]
--- OUTSIDE RECORDS SUMMARY | 2024-09-21 16:53 | XMS_ITS | Clinical Summary ---
Author Organization [facility] Plated Address [address] [place] [address] Care Team Providers Care Casting And Pasting Supervisor Name Role Phone Henrietta Acevedo CAR SUPPLIER-COMPUTER LANGUAGE CODER Primary Care Provider Source Comments [facility],non-owned Affiliates and Associated Physician Practices is amultiple site organization consisting of ambulatory clinics and hospital sitesin [place], [place], [place] and [place]. This disclosure is being madepursuant to the Care Everywhere program and may not contain all information available regarding this patient. 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 Carroll Corea MD have personally reviewed and interpreted this examination/study. > Interpreting Provider: Carroll Mcguire MD on 08/13/2024 8:40 PM Narrative 08/13/2024 8:40 PM CDT PROCEDURE: XR SHOULDER RIGHT 2VW OR MORE, DATE/TIME OF EXAM: 08/13/2024 5:14 PM, LOCATION [facility] INDICATION: T14.90XA: Trauma ADDITIONAL CLINICAL INFORMATION: Ordering Provider Reason For Exam: fx Technologist Note: Additional: COMPARISON: None. FINDINGS: The osseous structures are intact without acute fracture. The glenohumeral and acromioclavicular joints are in anatomic alignment. Bone density and texture are normal. Procedure Note Carroll Mcguire MD - 08/13/2024 PROCEDURE: XR SHOULDER RIGHT 2VW OR MORE, DATE/TIME OF EXAM: 08/13/2024 5:14 PM, LOCATION [facility] INDICATION: T14.90XA: Trauma ADDITIONAL CLINICAL INFORMATION: Ordering Provider Reason For Exam: fx Technologist Note: Additional: COMPARISON: None. FINDINGS: The osseous structures are intact without acute fracture. Theglenohumeral and acromioclavicular joints are in anatomic alignment. Bone density and texture are normal. IMPRESSION: No acute fracture or dislocation identified. Report dictated by Soheila Daly Dr, MD (resident services supervisor). Carroll Corea MD have personally reviewed and [...] is dictated by Soheila Daly Dr, MD (resident services supervisor) I, Pamela Lloyd MD have personally reviewed and interpreted this examination/study. > Interpreting Provider: Pamela Lloyd MD on 08/13/2024 5:05 PM Narrative 08/13/2024 5:05 PM CDT PROCEDURE: CT HEAD WO CONTRAST, CT FACIAL BONES WO CONTRAST, CT CERVICAL SPINE WO CONTRAST, DATE/TIME OF EXAM: 08/13/2024 3:26 PM, LOCATION [facility] INDICATION: Trauma EXAMINATION: 1. Computed tomography (CT) [...] DATE/TIME OF EXAM: 08/13/2024 3:26 PM, LOCATION [facility] INDICATION: Trauma EXAMINATION: 1. Computed tomography (CT) [...] is dictated by Soheila Daly Dr, MD (resident services supervisor) I, Pamela Lloyd MD have personally reviewed [...] is dictated by Soheila Daly Dr, MD (resident services supervisor) I, Pamela Lloyd MD have personally reviewed and interpreted this examination/study. > Interpreting Provider: Pamela Lloyd MD on 08/13/2024 5:05 PM Narrative 08/13/2024 5:05 PM CDT PROCEDURE: CT HEAD WO CONTRAST, CT FACIAL BONES WO CONTRAST, CT CERVICAL SPINE WO CONTRAST, DATE/TIME OF EXAM: 08/13/2024 3:26 PM, LOCATION [facility] INDICATION: Trauma EXAMINATION: 1. Computed tomography (CT) [...] DATE/TIME OF EXAM: 08/13/2024 3:26 PM, LOCATION [facility] INDICATION: Trauma EXAMINATION: 1. Computed tomography (CT) [...] is dictated by Soheila Daly Dr, MD (resident services supervisor) I, Pamela Lloyd MD have personally reviewed [...] is dictated by Soheila Daly Dr, MD (resident services supervisor) I, Pamela Lloyd MD have personally reviewed and interpreted this examination/study. > Interpreting Provider: Pamela Lloyd MD on 08/13/2024 5:05 PM Narrative 08/13/2024 5:05 PM CDT PROCEDURE: CT HEAD WO CONTRAST, CT FACIAL BONES WO CONTRAST, CT CERVICAL SPINE WO CONTRAST, DATE/TIME OF EXAM: 08/13/2024 3:26 PM, LOCATION [facility] INDICATION: Trauma EXAMINATION: 1. Computed tomography (CT) [...] DATE/TIME OF EXAM: 08/13/2024 3:26 PM, LOCATION [facility] INDICATION: Trauma EXAMINATION: 1. Computed tomography (CT) [...] is dictated by Soheila Daly Dr, MD (resident services supervisor) I, Pamela Lloyd MD have personally reviewed and interpreted this examination/study. > Interpreting Provider: Pamela Llody MD on 08/13/2024 5:05 PM us Henry Mejia DO CT ORDERABLES Final Result * PTT [facility] (08/13/2024 3:11 PM CDT) APTT 29.9 23.0 - 38.4 Seconds 08/13/2024 3:53 PM CDT [facility] Comment:Suggested therapeuti c range for full dose I.V. unfractionated heparin therapy for venous thromboembolism is 71 to 109 seconds. Blood BLOOD SPECIMEN / Unknown Venipuncture / Unknown 08/13/2024 3:11 PM CDT 08/13/2024 3:15 PM CDT Henry Mejia DO LAB - COAGULATION ORDERABLES Final Result [facility] [address] [place] [address], [facility] [phone] * PT-INR [facility] (08/13/2024 3:11 PM CDT) PT 13.1 12.1 - 14.8 Seconds 08/13/2024 3:53 PM CDT [facility] INR 1.0 See Comment 08/13/2024 3:53 PM CDT [facility] Comment:The suggested therap eutic range for standard coumadin (warfarin) therapy is an INR of 2.0-3.0. For high-risk patients (Mechanical Mitral Valve Prosthesis, etc.), the suggested prophylactic therapeutic range is an INR of 2.5-3.5. Blood BLOOD SPECIMEN / Unknown Venipuncture / Unknown 08/13/2024 3:11 PM CDT 08/13/2024 3:15 PM CDT Henry Mejia DO LAB - COAGULATION ORDERABLES Final Result Performing Organization Address City/[facility]/ZIP Co de Phone Number [facility] [address] [place] [address], [place] [phone] * TYPE + SCREEN PANEL (08/13/2024 3:11 PM CDT) Pathologist [facility] [place] Antibody Screen NEG 4:07 PM CDT [facility] ABO Rh O POS 08/13/2024 4:07 PM CDT [facility] Blood Bank BLOOD SPECIMEN / Unknown Venipuncture / Unknown 08/13/2024 3:11 PM CDT 08/13/2024 3:15 PM CDT Henry Mejia DO LAB - BLOOD BANK ORDERABLES Final Result Performing Organization Address City/[facility]/ZIP Co de Phone Number [facility] [address] [place] [address], [place] [phone] * (ABNORMAL) CBC W AUTO DIFFERENTIAL (08/13/2024 3:11 PM CDT) WBC 10.3 4.0 - 10.7 x10E9/L 08/13/2024 3:20 PM CDT [facility] RBC Count 3.90(L) 4.30 - 5.80 x10E12/L 08/13/2024 3:20 PM CDT [facility] Hemoglobin 12.6(L) 13.3 - 17.5 g/dL 08/13/2024 3:20 PM CDT [facility] Hematocrit 36.1(L) 38.7 - 51.1 % 08/13/2024 3:20 PM CDT [facility] MCV 92.6 80.0 - 98.0 fL 08/13/2024 3:20 PM CDT [facility] MCH 32.3 26.7 - 33.6 pg 08/13/2024 3:[address] [facility] MCHC 34.9 31.7 - 36.3 g/dL 08/13/2024 3:[address] [facility] RDW-CV 11.8 11.3 - 14.8 % 08/13/2024 3:[address] [facility] Platelet Count 263 150 - 420 x10E9/L 08/13/2024 3:[address] [facility] MPV 9.7 7.8 - 11.4 fL 08/13/2024 3:[address] [facility] Neutrophil % 72.0 41.0 - 74.0 % 08/13/2024 3:[address] [facility] Lymphocyte % 18.2 17.0 - 47.0 % 08/13/2024 3:[address] [facility] Monocyte % 6.6 3.0 - 11.0 % 08/13/2024 3:[address] [facility] Eosinophil % 2.3 0.0 - 7.0 % 08/13/2024 3:[address] [facility] Basophil % 0.5 0.0 - 1.6 % 08/13/2024 3:[address] [facility] Immature Granulocytes % 0.4 0.0 - 1.0 % 08/13/2024 3:[address] [facility] Neutrophil Absolute 7.44 1.60 - 7.50 x10E9/L 08/13/2024 3:[address] [facility] Lymphocyte Absolute 1.88 1.00 - 4.40 x10E9/L 08/13/2024 3:[address] [facility] Monocyte Absolute 0.68 0.15 - 1.00 x10E9/L 08/13/2024 3:[address] [facility] Eosinophil Absolute 0.24 0.00 - 0.60 x10E9/L 08/13/2024 3:[address] [facility] Basophil Absolute 0.05 0.00 - 0.13 x10E9/L 08/13/2024 3:[address] [facility] Blood BLOOD SPECIMEN / Unknown Venipuncture / Unknown 08/13/2024 3:11 PM CDT 08/13/2024 3:15 PM CDT us Henry Mejia DO LAB - HEMATOLOGY ORDERABLES Final Result [facility] [address] [place] [address], [facility] [phone] * BASIC METABOLIC PANEL (CALCIUM TOTAL) (08/13/2024 3:11 PM CDT) BUN 10 7 - 26 mg/dL 08/13/2024 3:[address] [facility] Creatinine 0.96 0.71 - 1.16 mg/dL 08/13/2024 3:[address] [facility] Sodium 140 136 - 145 mmol/L 08/13/2024 3:[address] [facility] Potassium 3.6 3.5 - 4.5 mmol/L 08/13/2024 3:[address] [facility] Chloride 104 98 - 107 mmol/L 08/13/2024 3:[address] [facility] CO2 24 22 - 29 mmol/L 08/13/2024 3:[address] [facility] Glucose 90 70 - 99 mg/dL 08/13/2024 3:[address] [facility] Calcium 8.7 8.4 - 10.2 mg/dL 08/13/2024 3:[address] [facility] Anion Gap 12 6 - 16 08/13/2024 3:[address] [facility] BUN/Creatinine Ratio 10 7 - 23 08/13/2024 3:[address] [facility] Osmolality Calculated 289 275 - 295 mOsm/kg 08/13/2024 3:[address] [facility] eGFR by CKD-EPI >90 >=90 mL/min/1.7 3 m2 08/13/2024 3:[address] [facility] Blood BLOOD SPECIMEN / Unknown Venipuncture / Unknown 08/13/2024 3:11 PM CDT 08/13/2024 3:15 PM CDT us Henry Mejia DO LAB - CHEMISTRY ORDERABLES F inal Result Performing Organization Address [facility] Co de Phone Number [facility] [address] [place] [address], [facility] [phone] * ALCOHOL ETHYL BLOOD (08/13/2024 3:11 PM CDT) Ethanol (mg/dL) <10 <10 mg/dL 3:40 PM CDT [facility] Ethanol Calculated (g/dL) <0.010 <=0.010 g/dL 08/13/2024 3:40 PM CDT [facility] Blood BLOOD SPECIMEN / Unknown Venipuncture / Unknown 08/13/2024 3:11 PM CDT 08/13/2024 3:15 PM CDT Narrative [facility] - 08/13/2024 3:40 PM CDT Ethanol Interp <10: None Detected. Depression of REPRESENTATIVE PHLEBOTOMY SERVICES: >100 mg/dl Potentially Critical: >250 mg/dl Potentially [...] ORDERABLES F inal Result Performing Organization Address [facility] Co de Phone Number [facility] [address] [place] [address], [facility] [phone] * XR CHEST 1VW PORTABLE (08/13/2024 3:10 PM CDT) Anatomical Region Laterality Modality Chest Digital Radiogra phy 08/13/2024 3:13 PM CDT Narrative 08/13/2024 8:34 PM CDT PROCEDURE: XR CHEST 1VW PORTABLE, DATE/TIME OF EXAM: 08/13/2024 3:10 PM, LOCATION [facility] INDICATION: Trauma ADDITIONAL CLINICAL INFORMATION: Ordering Provider Reason For Exam: Technologist Note: Additional: COMPARISON: None. FINDINGS/IMPRESSION: Low lung volumes with bronchovascular crowding. No focal consolidation, pneumothorax, or pleural effusion. The cardiomediastinal silhouette is normal. No displaced fractures identified. Report dictated by Soheila Daly Dr, MD (resident services supervisor). Carroll Corea MD have personally reviewed and interpreted this examination/study. > Interpreting Provider: Carroll Mcguire MD on 08/13/2024 8:34 PM Procedure Note Carroll Mcguire MD - 08/13/2024 PROCEDURE: XR CHEST 1VW PORTABLE, DATE/TIME OF EXAM: 08/13/2024 3:10PM, LOCATION [facility] INDICATION: Trauma ADDITIONAL CLINICAL INFORMATION: Ordering Provider Reason For Exam: Technologist Note: Additional: COMPARISON: None. FINDINGS/IMPRESSION: Low lung volumes with bronchovascular crowding. No focal consolidation, pneumothorax, or pleural effusion. The cardiomediastinal silhouette is normal. No displaced fractures identified. Report dictated by Soheila Daly Dr, MD (resident services supervisor). Carroll Corea MD have personally reviewed and [...] Report dictated by Soheila Daly Dr, MD (resident services supervisor). Carroll Corea MD have personally reviewed and interpreted this examination/study. > Interpreting Provider: Carroll Mcguire MD on 08/13/2024 8:34 PM Narrative 08/13/2024 8:34 PM CDT PROCEDURE: XR PELVIS 1 OR 2VW, DATE/TIME OF EXAM: 08/13/2024 3:10 PM, LOCATION [facility] INDICATION: Trauma Fracture suspected ADDITIONAL CLINICAL INFORMATION: [...] DATE/TIME OF EXAM: 08/13/2024 3:10 PM, LOCATION [facility] INDICATION: Trauma Fracture suspected ADDITIONAL CLINICAL INFORMATION: Ordering Provider Reason For Exam: Technologist Note: Additional: COMPARISON: None. FINDINGS: No acute fracture is identified. The femoral heads appear well-seated within their respective acetabula. The pubic symphysis is intact. Bone density and texture are normal. The sacroiliac joints are normal. IMPRESSION: No acute fracture identified. Report dictated by Soheila Daly Dr, MD (resident services supervisor). ICarroll MD have personally reviewed and interpreted this examination/study. > Interpreting Provider: Carroll Mcguire MD on 08/13/2024 8:34 PM Henry Mejia DO DIAGNOSTIC IMAGING ORDERABLE S Final Result from Last 3 Months Insurance [employer] Care Teams Casting And Pasting Supervisor Relationship Specialty Start Date End Date Henrietta Acevedo, CAR SUPPLIER-COMPUTER LANGUAGE CODER [address] [place] [address] PCP - General 12/14/17
== END 2024-09-21 16:47 | disposition left against medical advice (07) ==
LOC: ANHED 16:51
DX: K92.1 Melena (principal)
CPT/HCPCS: 99199